=== PATIENT | female | born 1995 | race American Indian/Alaskan Native ===

== ENCOUNTER 2017-06-29 06:32 | Emergency (ER) | payer OTHER ==
[~2017-06-29] VITALS: Ht 175.3 cm; Wt 95.2 kg
[~2017-06-29 06:32] MED LIST: CALCIO DEL MAR500 MG PO; KEFLEX500 MG PO; MOTRIN800 MG PO; NAPROXEN500 MG PO; NORCO 10-325 T1 EACH PO; NORCO 5-325 TA1 EACH PO; PRENATAL-FOLIC1 EACH PO; ROBAXIN-750750 MG PO; ZOFRAN4 MG PO
== END 2017-06-29 08:06 | disposition home or self-care (01) ==
LOC: ED 06:32
PROC: 2W3FX1Z Immobilization of Left Hand using Splint (ICD-10-PCS; principal; 2017-06-29)
DX: S63.502A Unspecified sprain of left wrist, initial encounter (principal); F17.200 Nicotine dependence, unspecified, uncomplicated; S80.211A Abrasion, right knee, initial encounter; W01.0XXA Fall on same level from slipping, tripping and stumbling without subsequent striking against object, initial encounter
CPT/HCPCS: 29125; 73110; 99283

== ENCOUNTER 2017-10-13 17:55 | Emergency (ER) | payer OTHER ==
[~2017-10-13] VITALS: Ht 175.3 cm; Wt 95.2 kg
== END 2017-10-13 19:00 | disposition home or self-care (01) ==
LOC: ED 17:55
PROC: 0HC1XZZ Extirpation of Matter from Face Skin, External Approach (ICD-10-PCS; principal; 2017-10-13)
DX: S00.85XA Superficial foreign body of other part of head, initial encounter (principal); F17.200 Nicotine dependence, unspecified, uncomplicated; W26.9XXA Contact with unspecified sharp object(s), initial encounter
CPT/HCPCS: 10120; 99282

== ENCOUNTER 2017-11-24 04:17 | Emergency (ER) | payer OTHER ==
[~2017-11-24] VITALS: Ht 175.3 cm; Wt 95.2 kg
== END 2017-11-24 12:00 | disposition home or self-care (01) ==
LOC: ED 04:17
DX: F10.129 Alcohol abuse with intoxication, unspecified (principal); F17.200 Nicotine dependence, unspecified, uncomplicated; Y90.8 Blood alcohol level of 240 mg/100 ml or more
CPT/HCPCS: 80053; 81001; 84703; 85025; 87491; 87591; 96360; 96361; 99283; G0480; J7030

== ENCOUNTER 2018-03-17 21:54 | Emergency (ER) | payer OTHER ==
[~2018-03-17] VITALS: Ht 175.3 cm; Wt 104.3 kg
--- OUTSIDE RECORDS SUMMARY | ~2018-03-17 | XMS | Clinical Summary ---
Demographics + + + | Address | [address] | | | [place] [address] | + + + | Home Phone | | + + + | Preferred Language | Unknown | + + + | Marital Status | Single | + + + | Caodaism Affiliation | Unknown | + + + | Race | Unknown | + + + | Ethnic Group | Unknown | + + + Author + + + | Author | [facility] | | | and [place] | + + + | Organization | [facility] | | | and [place] | + + + | Address | Unknown | + + + | Phone | Unavailable | + + + Support + + +---------+ + | Name | Relationship | Address | Phone | + + +---------+ + | Tyra Silva | ECON | Unknown | | + + +---------+ + Care Team Providers + +------+ + | Care Cleaner Laboratory Equipment Name | Role | Phone | + +------+ + | Unknown, Doctor | PP | | + +------+ + Allergies No Known Allergies Current Medications + + +--------+---------+------+------+-------+ | Prescription | Sig. | Disp. | Refills | Star | End | Statu | | | | | | t | Date | s | | | | | | Date | | | + + +--------+---------+------+------+-------+ | ondansetron | Take 1 tablet by | 8 | 0 | 08/2 | 09/0 | Activ | | (ZOFRAN ODT) 4 mg | mouth every 8 hours | tablet | | 5/20 | 1/20 | e | | disintegrating | as needed for Nausea | | | 18 | 18 | | | tablet | for up to 7 days. | | | | | | + + +--------+---------+------+------+-------+ | morphine (MSIR) 15 | Take 1 tablet by | 7 | 0 | 08 | | Activ | | mg tablet | mouth every 8 hours | tablet | | 12/09 | | e | | | as needed for Pain. | | | 18 | | | + + +--------+---------+------+------+-------+ Active Problems Not on file Encounters +--------+ + + + + | Date | Type | Specialty | Care Team | Description | +--------+ + + + + | 03/16/ | Emergency | | Ochoa Castellon | Left ovarian cyst | | 2017 | | | MD Marisa | (Primary Dx) | +--------+ + + + + from Last 3 Months Social History + +-------+ +--------+------+ | Tobacco Use | Types | Packs/Day | Years | Date | | | | | Used | | + +-------+ +--------+------+ | Never Assessed | | | | | + +-------+ +--------+------+ + + + | Sex Assigned at | Date Recorded | | | | + + + | Not on file | | + + + Last Filed Vital Signs + + + + | Vital Sign | Reading | Time Taken | + + + + | Blood Pressure | 140/56 | 03/16/2018600 PDT | + + + + | Pulse | 82 | 03/16/2018600 PDT | + + + + | Temperature | 37.4 C (99.3 F) | 03/16/201814 PDT | + + + + | Respiratory Rate | 15 | 03/16/201814 PDT | + + + + | Oxygen Saturation | 97% | 03/16/2018600 PDT | + + + + | Inhaled Oxygen | - | - | | Concentration | | | + + + + | Weight | 106.6 kg (235 lb) | 03/16/201814 PDT | + + + + | Height | 175.3 cm (5' 9") | 03/16/201814 PDT | + + + + | Body Mass Index | 34.7 | 03/16/201814 PDT | + + + + Plan of Treatment + + + + + | Health Maintenance | Due Date | Last Done | Comments | + + + + + | Well Child Check | | | | | | 9 | | | + + + + + | Vaccine: HPV (1 of 3 | | | | | - Female 3-dose | 7 | | | | series) | | | | + + + + + | Vaccine: | | | | | Dtap/Tdap/Td (1 - | 5 | | | | Tdap) | | | | + + + + + | Cervical Cancer | | | | | Screening (Pap) | 7 | | | + + + + + | Vaccine: Influenza | | | | | (#1) | 8 | | | + + + + + Procedures + +--------+ + + + | Procedure Name | Priori | Date/Time | Associated Diagnosis | Comments | | | ty | | | | + +--------+ + + + | US PELVIS W | STAT | 03/16/2018 | | Results for this | | TRANSVAGINAL | | 0510 PDT | | procedure are in the | | | | | | results section. | + +--------+ + + + | CT ABDOMEN PELVIS W | STAT | 03/16/2018 | | Results for this | | CONTRAST | | 0306 PDT | | procedure are in the | | | | | | results section. | + +--------+ + + + | EXTRA HOLD TUBE(S) | Routin | 03/16/2018 | | Results for this | | | e | 0256 PDT | | procedure are in the | | | | | | results section. | + +--------+ + + + | POCT TEST, | STAT | 03/16/2018 | | Results for this | | URINE, QUAL | | 0245 PDT | | procedure are in the | | | | | | results section. | + +--------+ + + + | LIPASE | STAT | 03/16/2018 | | Results for this | | | | 0243 PDT | | procedure are in the | | | | | | results section. | + +--------+ + + + | COMPREHENSIVE | STAT | 03/16/2018 | | Results for this | | METABOLIC PANEL | | 0243 PDT | | procedure are in the | | | | | | results section. | + +--------+ + + + | CBC WITH | STAT | 03/16/2018 | | Results for this | | DIFFERENTIAL | | 0243 PDT | | procedure are in the | | | | | | results section. | + +--------+ + + + | EXTRA HOLD TUBE(S) | STAT | 03/16/2018 | | Results for this | | | | 0021 PDT | | procedure are in the | | | | | | results section. | + +--------+ + + + | URINALYSIS WITH | STAT | 03/16/2018 | | Results for this | | MICROSCOPIC | | 0021 PDT | | procedure are in the | | | | | | results section. | + +--------+ + + + from Last 3 Months Results US Pelvis W Transvaginal (03/16/2018 0510) + + + | Narrative | Performed At | + + + | ULTRASOUND PELVIS, TRANSABDOMINAL AND TRANSVAGINAL WITH DOPPLER | [facility] | | CLINICAL INFORMATION: Enlarged left ovary seen on CT scan. | | | COMPARISON: CT ABDOMEN PELVIS W CONTRAST dated 03/16/2018 | | | PROCEDURE: Transabdominal and transvaginal ultrasound evaluation of | | | the uterus, endometrium, adnexa and ovaries. Color and spectral | | | Doppler waveform evaluation of the ovaries. FINDINGS: | | | Transabdominal: Uterus: 7.3 x 4.3 x 3.3 cm. Uterus is normal in | | | position and contour. No visible adnexal mass or pathologic free | | | fluid. Transvaginal: Uterus normal. Well-positioned | | | intrauterine device. Endometrium: 5 mm. Right ovary: 3.7 x 2.8 | | | x 2.6 cm. Normal physiologic appearance. Left ovary: 7.5 x 6.0 x | | | 4.9 cm. 6.0 x 5.8 x 5.5 cm avascular complex cyst in the left ovary. | | | No abnormal appearing free fluid. Doppler: Normal low | | | resistance arterial and patent venous waveforms in the ovaries. | | | IMPRESSION: 1. 6.0 x 5.8 x 5.5 cm avascular complex cyst in the | | | left ovary. See recommendations below: Adnexal cyst with | | | indeterminate features. Recommend short term follow up ultrasound | | | in 6-12 weeks. In premenopausal women lesions suspected to be a | | | large (greater than 5cm) or atypical hemorrhagic cyst, endometrioma | | | or atypical dermoid. If not resolved at follow up, consider MRI to | | | confirm an endometrioma or dermoid and [employer]PRENTICE surgical evaluation | | | recommended. 2. Well-positioned IUD. Normal right ovary. | | | Signed by: MD Segundo, Nikolai Sign Date/Time: 03/16/2018 5:28 AM | | | | | + + + + + | Procedure Note | + + | Clay, Rad Results In - 03/16/2018 0531 PDT | | ULTRASOUND PELVIS, TRANSABDOMINAL AND TRANSVAGINAL WITH DOPPLER | | | | CLINICAL INFORMATION: | | Enlarged left ovary seen on CT scan. | | | | COMPARISON: | | CT ABDOMEN PELVIS W CONTRAST dated 03/16/2018 | | | | PROCEDURE: | | Transabdominal and transvaginal ultrasound evaluation of the uterus, | | endometrium, adnexa and ovaries. Color and spectral Doppler waveform | | evaluation of the ovaries. | | | | FINDINGS: | | Transabdominal: | | Uterus: 7.3 x 4.3 x 3.3 cm. Uterus is normal in position and contour. | | No visible adnexal mass or pathologic free fluid. | | | | Transvaginal: | | Uterus normal. Well-positioned intrauterine device. Endometrium: 5 | | mm. | | | | Right ovary: 3.7 x 2.8 x 2.6 cm. Normal physiologic appearance. | | | | Left ovary: 7.5 x 6.0 x 4.9 cm. 6.0 x 5.8 x 5.5 cm avascular complex | | cyst in the left ovary. | | | | No abnormal appearing free fluid. | | | | Doppler: Normal low resistance arterial and patent venous waveforms | | in the ovaries. | | | | IMPRESSION: | | 1. 6.0 x 5.8 x 5.5 cm avascular complex cyst in the left ovary. See | | recommendations below: | | | | Adnexal cyst with indeterminate features. Recommend short term | | follow up ultrasound in 6-12 weeks. | | | | In premenopausal women lesions suspected to be a large (greater than | | 5cm) or atypical hemorrhagic cyst, endometrioma or atypical dermoid. | | If not resolved at follow up, consider MRI to confirm an endometrioma | | or dermoid and [employer] APPRENTICE surgical evaluation recommended. | | | | 2. Well-positioned IUD. Normal right ovary. | | | | | | | | Signed by: MD Raymond Robin | | Sign Date/Time: 03/16/2018 5:28 AM | + + + +---------+ + + | Performing | Address | City/State/Zipcode | Phone Number | | Organization | | | | + +---------+ + + | [facility] | | | | + +---------+ + + CT Abdomen Pelvis w Contrast (03/16/2018 0306) + + + | Narrative | Performed At | + + + | CT ABDOMEN AND PELVIS WITH CONTRAST CLINICAL INFORMATION: | [facility] | | Abdominal pain and nausea for five days. COMPARISON: No | | | comparisons PROCEDURE: Axial images through the abdomen and | | | pelvis after the administration of 100 ml Omnipaque 350 intravenous | | | contrast. Multiplanar reconstructions. At least one of the | | | following CT dose optimization techniques were used: Automated | | | exposure control; Adjustment of mA and/or kV according to patient | | | size; Use of iterative reconstruction technique. FINDINGS: LUNG | | | BASES: No significant pulmonary abnormality. No pleural effusion or | | | pneumothorax. ABDOMEN Liver and Biliary: No gallbladder or | | | biliary abnormality. No significant liver abnormality. Pancreas, | | | Spleen and Adrenals: No pancreatitis or pancreatic mass. No | | | splenomegaly, splenic mass or splenic hemorrhage. No significant | | | adrenal abnormality. Kidneys: No renal calculi or solid renal | | | mass. Mild left-sided hydronephrosis. ABDOMEN AND PELVIS | | | Bowel: No small bowel or colonic dilation or adjacent inflammation. | | | No appendiceal dilation or inflammation. Vessels: No significant | | | abnormality in the aorta or its proximal branches. No significant | | | abnormality in the portal veins, mesenteric veins or systemic veins. | | | Lymph Nodes: There are several mildly prominent retroperitoneal lymph | | | nodes measuring up to 1.4 cm. Peritoneum and Retroperitoneum: No | | | ascites or free air. No significant retroperitoneal abnormality. | | | PELVIS Genitourinary: There is an IUD in place within the endometrial | | | canal. The left ovary is enlarged and deviates the retroverted | | | uterus rightward. Mildly complex cystic lesion in the left ovary | | | which measures 5.7 cm. There is an additional small irregular | | | heterogeneous low attenuation cystic lesion in the right ovary which | | | appears to contain internal septations. This may represent a | | | hemorrhagic cyst. Trace free fluid in the cul-de-sac. BODY WALL | | | Soft Tissues: No bowel or inflamed fat containing hernia, mass or | | | hemorrhage. Bones: No acute fracture or vertebral end plate | | | destruction. No lytic or blastic lesion. IMPRESSION: 1. Complex | | | cystic lesions in the enlarged left ovary, the largest measuring 5.7 | | | cm. Pelvic ultrasound recommended. Premenopausal patient with a | | | probably benign cyst measuring > 5 cm. (Based on White paper of the | | | ACR Incidental Findings Committee II on Adnexal Findings. J Am Rhonda | | | Radiol 2013; 10: 675-681) 2. Trace amount of free fluid in the | | | cul-de-sac. 3. Mild left-sided hydronephrosis, without an obstructing | | | ureteral calculus. This may be secondary to the enlarged left | | | ovary. 4. Nonspecific mildly prominent retroperitoneal lymph nodes. | | | Signed by: MD Fady, Janeth Sign Date/Time: 03/16/2018 | | | 3:21 AM | | + + + + + | Procedure Note | + + | Clay, Rad Results In - 03/16/2018 0325 PDT | | CT ABDOMEN AND PELVIS WITH CONTRAST | | | | CLINICAL INFORMATION: | | Abdominal pain and nausea for five days. | | | | COMPARISON: | | No comparisons | | | | PROCEDURE: | | Axial images through the abdomen and pelvis after the administration | | of 100 ml Omnipaque 350 intravenous contrast. Multiplanar | | reconstructions. | | | | At least one of the following CT dose optimization techniques were | | used: Automated exposure control; Adjustment of mA and/or kV | | according to patient size; Use of iterative reconstruction technique. | | | | FINDINGS: | | LUNG BASES: No significant pulmonary abnormality. No pleural effusion | | or pneumothorax. | | | | ABDOMEN | | Liver and Biliary: No gallbladder or biliary abnormality. No | | significant liver abnormality. | | Pancreas, Spleen and Adrenals: No pancreatitis or pancreatic mass. No | | splenomegaly, splenic mass or splenic hemorrhage. No significant | | adrenal abnormality. | | Kidneys: No renal calculi or solid renal mass. Mild left-sided | | hydronephrosis. | | | | ABDOMEN AND PELVIS | | Bowel: No small bowel or colonic dilation or adjacent inflammation. | | No appendiceal dilation or inflammation. | | Vessels: No significant abnormality in the aorta or its proximal | | branches. No significant abnormality in the portal veins, mesenteric | | veins or systemic veins. | | Lymph Nodes: There are several mildly prominent retroperitoneal lymph | | nodes measuring up to 1.4 cm. | | Peritoneum and Retroperitoneum: No ascites or free air. No | | significant retroperitoneal abnormality. | | | | PELVIS | | Genitourinary: There is an IUD in place within the endometrial canal. | | The left ovary is enlarged and deviates the retroverted uterus | | rightward. Mildly complex cystic lesion in the left ovary which | | measures 5.7 cm. There is an additional small irregular | | heterogeneous low attenuation cystic lesion in the right ovary which | | appears to contain internal septations. This may represent a | | hemorrhagic cyst. Trace free fluid in the cul-de-sac. | | | | BODY WALL | | Soft Tissues: No bowel or inflamed fat containing hernia, mass or | | hemorrhage. | | Bones: No acute fracture or vertebral end plate destruction. No lytic | | or blastic lesion. | | | | IMPRESSION: | | 1. Complex cystic lesions in the enlarged left ovary, the largest | | measuring 5.7 cm. Pelvic ultrasound recommended. Premenopausal | | patient with a probably benign cyst measuring > 5 cm. (Based on White | | paper of the ACR Incidental Findings Committee II on Adnexal | | Findings. J Am Rhonda Radiol 2013; 10: 675-681) | | 2. Trace amount of free fluid in the cul-de-sac. | | 3. Mild left-sided hydronephrosis, without an obstructing ureteral | | calculus. This may be secondary to the enlarged left ovary. | | 4. Nonspecific mildly prominent retroperitoneal lymph nodes. | | | | | | | | Signed by: MD Shrestha Paula | | Sign Date/Time: 03/16/2018 3:21 AM | + + + +---------+ + + | Performing | Address | City/State/Zipcode | Phone Number | | Organization | | | | + +---------+ + + | [facility] | | | | + +---------+ + + Extra Hold Tube(s) (03/16/2018 0256)Only the most recent of 2 results within the time kannan javed is included. + + + + ---+ | Component | Value | Ref Range | Performed At | + + + + ---+ | Extra Tube | DrawnComment: Performed | | [facility] | | | by [facility] [address], | | [facility] | | | [place] [address] | | MEDICAL CENT[facility] R | | |Performed by [facility] [address], [place] [address] | | LABORATORY | | | | | [facility] | + + + + ---+ + + | Specimen | + + | Blood | + + + + + | Narrative | Performed At | + + + | blue, sst | [facility] | | | [facility] | | [facility] | | | LAB[facility]ATORY | | | [facility] | + + + + + + + + | Performing | Address | City/State/Zipcode | Phone Number | | Organization | | | | + + + + + | [facility] | [address] | [place] [address] | | | [facility] | | | | | [facility]AT[facility] | | | | + + + + + POCT Test, Urine, QUAL (03/16/2018 0245) + + + + + | Component | Value | Ref Range | Performed At | + + + + + | Test, | Negative | Negative | | | Urine, POC | | | | + + + + + | Internal QC | Acceptable | Acceptable | | + + + + + | Specific [place], | | 1.010, 1.015, 1.020, | | | POC | | 1.025 | | + + + + + | Lot Number | | | | + + + + + | Expiration Date | | | | + + + + + + + | Specimen | + + | Urine | + + CBC with Differential (03/16/2018 0243) + + + --+ + | Component | Value | Ref Range | Performed At | + + + --+ + | WBC | 13.6 (H) | 3.8 - 11.0 K/uL | [facility] | | | | | [facility] | | | | | [facility] | | | | | LAB[facility]ATORY | | | | | [facility] | + + + --+ + | RBC | 3.95 | 3.70 - 5.10 M/u L | [facility] | | | | | [facility] | | | | | [facility] | | | | | LAB[facility]ORY | | | | | [facility] | + + + --+ + | Hgb | 12.3 | 11.3 - 15.5 g/d L | [facility] | | | | | [facility] | | | | | [facility] | | | | | LAB[facility]ATORY | | | | | [facility] | + + + --+ + | Hct | 35.9 | 34.0 - 46.0 % | [facility] | | | | | [facility] | | | | | [facility] | | | | | LAB[facility]ORY | | | | | [facility] | + + + --+ + | MCV | 90.9 | 80.0 - 100.0 fL | [facility] | | | | | [facility] | | | | | [facility] | | | | | LAB[facility]ATORY | | | | | [facility] | + + + --+ + | MCH | 31.2 | 27.0 - 34.0 pg | [facility] | | | | | [facility] | | | | | [facility] | | | | | LAB[facility]ATORY | | | | | [facility] | + + + --+ + | MCHC | 34.3 | 32.0 - 35.5 g/d L | [facility] | | | | | [facility] | | | | | [facility] | | | | | LAB[facility]ATORY | | | | | [facility] | + + + --+ + | RDW-CV | 13.3 | 11.0 - 15.5 % | [facility] | | | | | [facility] | | | [facility] | | | | | LAB[facility]ATORY | | | | | [facility] | + + + --+ + | Platelet Count | 188 | 150 - 400 K/uL | [facility] | | | | | [facility] | | | | [facility] | | | | | LAB[facility]ORY | | | | | [facility] | + + + --+ + | MPV | 8.2 | 7.5 - 11.2 fL | [facility] | | | | | [facility] | | | | [facility] | | | | | [facility] | | | | | [facility] | + + + --+ + | % Neutrophils | 79.1 (H) | 40.0 - 75.0 % | [facility] | | | | | [facility] | | | | | [facility] | | | | | LAB[facility]ATORY | | | | | [facility] | + + + --+ + | % Lymphocytes | 10.2 (L) | 15.0 - 48.0 % | [facility] | | | | | [facility] | | | | | [facility] | | | | | LAB[facility]ORY | | | | | [facility] | + + + --+ + | % Monocytes | 9.3 | 0.0 - 12.0 % | [facility] | | | | | [facility] | | | | | [facility] | | | | | LAB[facility] | | | | | [facility] | + + + --+ + | % Eosinophils | 1.2 | 0.0 - 7.0 % | [facility] | | | | | [facility] | | | | [facility] | | | | | LAB[facility] | | | | | [facility] | + + + --+ + | % Basophils | 0.2 | 0.0 - 2.0 % | [facility] | | | | | [facility] | | | | [facility] | | | | | LAB[facility]ORY | | | | | [facility] | + + + --+ + | Absolute Neutrophils | 10.70 (H) | 1.90 - 7.40 K/u L | [facility] | | | | | [facility] | | | | [facility] | | | | | [facility] | | | | | [facility] | + + + --+ + | Absolute Lymphocytes | 1.39 | 1.00 - 3.90 K/u L | [facility] | | | | | [facility] | | | | | [facility] | | | | | [facility] | | | | | [facility] | + + + --+ + | Absolute Monocytes | 1.26 (H) | 0.00 - 0.80 K/u L | [facility] | | | | | [facility] | | | | | [facility] | | | | | LAB[facility] | | | | | [facility] | + + + --+ + | Absolute Eosinophils | 0.16 | 0.00 - 0.50 K/u L | [facility] | | | | | [facility] | | | | | [facility] | | | | | LAB[facility]ORY | | | | | [facility] | + + + --+ + | Absolute Basophils | 0.03Comment: Performed | 0.00 - 0.10 K/u L | [facility] | | | by [facility] [address], | | [facility] | | | [place] [address] | | MEDICAL CENTER | | |Performed by [facility] [address], [place] [address] | | LABORATORY | | | | | [facility] | + + + --+ + + + | Specimen | + + | Blood | + + + + + + + | Performing | Address | City/State/Zipcode | Phone Number | | Organization | | | | + + + + + | [facility] | [address] | [place] [address] | | | [facility] | | | | | [facility] | | | | + + + + + Lipase (03/16/2018 0243) + + + + ----+ | Component | Value | Ref Range | Performed At | + + + + ----+ | LIPASE | 55Comment: Performed by | 11 - 82 U/L | [facility] | | | [facility] [address], | | [facility] | | | [place] [address] | | MEDICAL CENT ER | | |Performed by [facility] [address], [place] [address] | | LABORATORY | | | | | [facility] | + + + + ----+ + + | Specimen | + + | Blood | + + + + + + + | Performing | Address | City/State/Zipcode | Phone Number | | Organization | | | | + + + + + | [facility] | [address] | [place] [address] | | | [facility] | | | | | [facility] | | | | + + + + + Comprehensive Metabolic Panel (03/16/2018 0243) + + + + + | Component | Value | Ref Range | Performed At | + + + + + | NA | 139 | 135 - 145 mmol/L | [facility] | | | | | [facility] | | | [facility] | | | | | LAB[facility]ATORY | | | | | [facility] | + + + + + | K | 3.9 | 3.5 - 5.0 mmol/L | [facility] | | | | | [facility] | | | | [facility] | | | | | [facility] | | | | | [facility] | + + + + + | CL | 104 | 99 - 109 mmol/L | [facility] | | | | | [facility] | | | | | [facility] | | | | | LAB[facility]ATORY | | | | | [facility] | + + + + + | CO2 | 27 | 21 - 28 mmol/L | [facility] | | | | | [facility] | | | | | [facility] | | | | | LAB[facility] | | | | | [facility] | + + + + + | CALCIUM | 8.0 (L) | 8.5 - 10.2 mg/dL | [facility] | | | | | [facility] | | | | | [facility] | | | | | LAB[facility] | | | | | [facility] | + + + + + | ANION GAP | 8 | 5 - 16 mmol/L | [facility] | | | | | [facility] | | | | | [facility] | | | | | [facility] | | | | | [facility] | + + + + + | ALBUMIN | 4.4 | 3.5 - 5.0 g/dL | [facility] | | | | | [facility] | | | | | [facility] | | | | | [facility] | | | | | [facility] | + + + + + | BUN | 11 | 8 - 25 mg/dL | [facility] | | | | | [facility] | | | | | [facility] | | | | | [facility] | | | | | [facility] | + + + + + | Creatinine, | 0.85 | 0.50 - 1.00 mg/dL | [facility] | | Serum/Plasma | | | [facility] | | | | | [facility] | | | | | LAB[facility] | | | | | [facility] | + + + + + | GLUCOSE | 102 (H) | 65 - 99 mg/dL | [facility] | | | | | [facility] | | | | | [facility] | | | | | [facility] | | | | | [facility] | + + + + + | Total protein | 7.4 | 6.1 - 8.4 g/dL | [facility] | | | | | [facility] | | | | | [facility] | | | | | LAB[facility] | | | | | [facility] | + + + + + | ALK PHOS | 99 | 35 - 115 U/L | [facility] | | | | | [facility] | | | | | [facility] | | | | | LAB[facility]ATORY | | | | | [facility] | + + + + + | ALT | 81 (H) | 10 - 65 U/L | [facility] | | | | | [facility] | | | | | [facility] | | | | | LAB[facility]ATORY | | | | | [facility] | + + + + + | AST | 60 (H) | 10 - 45 U/L | [facility] | | | | | [facility] | | | | | [facility] | | | | | [facility] | | | | | [facility] | + + + + + | Bilirubin Total | 0.5 | 0.1 - 1.5 mg/dL | [facility] | | | | | [facility] | | | | | [facility] | | | | | LAB[facility]ORY | | | | | [facility] | + + + + + | Estimated GFR | 98Comment: eGFR<60 | >=90 mL/min/1.73m2 | [facility] | | | consistent with impaired | | [facility] | | | kidney | | [facility]ENTER | | | function.Performed by | | LABORATORY | | | [facility] [address], | | [facility] | | | [place] [address] | | | + + + + + + + | Specimen | + + | Blood | + + + + + + + | Performing | Address | City/State/Zipcode | Phone Number | | Organization | | | | + + + + + | [facility] | [address] | [place] [address] | | | [facility] | | | | | [facility] | | | | + + + + + Urinalysis With Microscopic (03/16/2018 0021) + + + + + | Component | Value | Ref Range | Performed At | + + + + + | COLOR | Yellow | | [facility] | | | | | [facility] | | | | [facility] | | | | | LAB[facility]ORY | | | | | [facility] | + + + + + | CLARITY | Clear | | [facility] | | | | | [facility] | | | | [facility] | | | | | LAB[facility]ORY | | | | | [facility] | + + + + + | GLUCOSE UA | Negative | Negative | [facility] | | | | | [facility] | | | | [facility] | | | | | [facility] | | | | | [facility] | + + + + + | BILIRUBIN UA | Negative | Negative | [facility] | | | | | [facility] | | | | | [facility] | | | | | [facility] | | | | | [facility] | + + + + + | UROBILINOGEN UA | 4.0 (A) | <2.0 mg/dL | [facility] | | | | | [facility] | | | | | [facility] | | | | | LAB[facility]ORY | | | | | [facility] | + + + + + | KETONES UA | Negative | Negative | [facility] | | | | | [facility] | | | | [facility] | | | | | LAB[facility]ORY | | | | | [facility] | + + + + + | Specific [place] | 1.010 | 1.001 - 1.030 | [facility] | [facility] | | | | | LABORATORY | | | | | CERNER | + + + + + | PH UA | 7.0 | 5.0 - 7.5 | [facility] | | | | | LABORATORY | | | | | CERNER | + + + + + | PROTEIN UA | Negative | Negative | [facility] | | | | | LABORATORY | | | | | CERNER | + + + + + | NITRITE UA | Negative | Negative | [facility] | | | | | LABORATORY | | | | | CERNER | + + + + + | BLOOD UA | Small (A) | Negative | [facility] | | | | | LABORATORY | | | | | CERNER | + + + + + | LEUKOCYTES ESTERASE | Negative | Negative | [facility] | | [facility] | | [facility] | | | | | LABORATORY | | | | | CERNER | + + + + + | SQUAMOUS EPITHELIAL | Many | | [facility] | | UA | | [facility] | | [facility] | | | | | LABORATORY | | | | | CERNER | + + + + + | WBC UA | 3 | 0 - 5 /hpf | [facility] | | | | | LABORATORY | | | | | CERNER | + + + + + | RBC UA | <1 | 0 - 5 | [facility] | | | | | LABORATORY | | | | | CERNER | + + + + + | BACTERIA UA | None Seen | | [facility] | [facility] | | | | | LABORATORY | | | | | CERNER | + + + + + | AMORPHOUS CRYSTALS | None Present | | [facility] | [facility] | | | | | LABORATORY | | | | | CERNER | + + + + + | MUCUS UA | Not PresentComment: | | [facility] | | | Performed by [facility] [address] | | [facility] | | | [address] [place] | | MEDICAL CENTER | | | [address] | | LABORATORY | | | | | CERNER | + + + + + + + | Specimen | + + | Urine | + + + + + + + | Performing | Address | City/State/Zipcode | Phone Number | | Organization | | | | + + + + + | [facility] | [address] | [place] [address] | | | [facility] | | | | | LABORATORY PARISH | | | | + + + + + from Last 3 Months Insurance + +--------+ +--------+ +---------+ | Payer | Benefi | Subscriber | Type | Phone | Address | | | t Plan | ID | | | | | | / | | | | | | | Group | | | | | + +--------+ +--------+ +---------+ | [place]ICA[place] | MEDICA | [id number] | Medica | [phone] | | | [place] | | id | [phone] | | | | PLUS | | | | | + +--------+ +--------+ +---------+ + +--------+ +--------+ + + | Guarantor Name | Accoun | Relation to | Date | Phone | Billing Address | | | t Type | Patient | of | | | | | | | | | | + +--------+ +--------+ + + | VERONICA JAIMES | Person | Self [birth year] | Home: | [address] | | | al/Fam | | 1994 | [phone] | [place] | | | jaimie | | | [phone] | + +--------+ +--------+ + +
--- OUTSIDE RECORDS SUMMARY | ~2018-03-17 | XMS | Encounter Summary ---
Demographics + + + | Address | [address] | | | [place] [address] | + + + | Home Phone | | + + + | Preferred Language | Unknown | + + + | Marital Status | Single | + + + | Holiness Affiliation | Unknown | + + + | Race | Unknown | + + + | Ethnic Group | Unknown | + + + Author + + + | Author | [facility] | | | and [place] | + + + | Organization | [facility] | | | and [place] [...] Team Providers + +------+ + | Care German Teacher Name | Role | Phone | + +------+ + | Unknown, Doctor | PCP | | + +------+ + Reason for Visit + + + | Reason | Comments | + + + | Abdominal Pain | | + + + Encounter Details +--------+ + + + + | Date | Type | Department | Care Team | Description | +--------+ + + + + | 03/16/ | Emergency | [facility] | Ochoa Castellon | Left ovarian cyst | | 2018 | | [facility] | MD Marisa [address] | (Primary Dx) | | | | EMERGENCY CENTER | [place] [address] | | | | | [address] | [phone] | | | | | [place], [place] | | | | | | [address] | | | | | | [phone] | | | +--------+ + + + + Social History + +-------+ +--------+------+ | Tobacco [...] on file | | + + + as of this encounter Last Filed Vital Signs + + + [...] + | Oxygen Saturation | 97% | 03/16/2018 06 PDT | + + + + | [...] 03/16/201814 PDT | + + + + in this encounter Discharge Instructions Ochoa Castellon MD - 03/16/2018Follow up with your doctor in 2-3 days, and return to [facility] emergency department for fever, vomiting, or any new symptoms or concerns. You will need a repeat ultrasound of your ovary in 6-12 weeks to look for resolution of your cyst. in this encounter Medications at Time of Discharge + + +--------+---------+ + + | Medication | Sig. | Disp. | Refills | Start | End Date | | | | | | Date | | + + +--------+---------+ + + | morphine (MSIR) 15 | Take 1 tablet by | 7 | 0 | 03/16/20 | | | mg tablet | mouth every 8 hours | tablet | | 18 | | | | as needed for Pain. | | | | | + + +--------+---------+ + + | ondansetron | Take 1 tablet by | 8 | 0 | 03/16/20 | | | (ZOFRAN ODT) 4 mg | mouth every 8 hours | tablet | | 18 | 8 | | disintegrating | as needed for Nausea | | | | | | tablet | for up to 7 days. | | | | | + + +--------+---------+ + + as of this encounter Plan of Treatment Not on fileas of this encounter Procedures + +--------+ + + + | [...] section. | + +--------+ + + + in this encounter Results US Pelvis W Transvaginal (03/16/2018 0510) [...] | confirm an endometrioma or dermoid and TAFE TEACHER surgical evaluation | | | recommended. 2. [...] an endometrioma | | or dermoid and TAFE TEACHER surgical evaluation recommended. | | | | 2. Well-positioned IUD. Normal right ovary. | | | | | | | | Signed by: MD Raymond Robin | | Sign Date/Time: 03/16/2018 5:28 AM | + + + +---------+ + + | Performing | Address | City/State/[facility] | Phone Number | | Organization | [...] nodes. | | | Signed by: MD Shrestha Paula Sign Date/Time: 03/16/2018 | | | 3:21 AM | | + + + + + | Procedure Note | + + | Clay, Rad Results In 03/16/2018 0325 PDT | | CT ABDOMEN [...] +---------+ + + Extra Hold Tube(s) (03/16/2018 0256) + + + + ---+ | Component | Value | Ref Range | Performed At | + + + + ---+ | Extra Tube | DrawnComment: Performed | | [facility] | | | by [facility] [address], | | [facility] | | | [place] [address] | | MEDICAL CENTE R | | |Performed by [facility] [address], [place] [address] | | LABORATORY | | | | | CERNER | + + + + ---+ + + | Specimen | + + | Blood | + + + + + | Narrative | Performed At | + + + | adalid aguilar | [facility] | | | [facility] | | | [facility]ICAL CENTER | | | LABORATORY | | | PARISH | + + + + + + + + | Performing | Address | City/State/Zipcode | Phone Number | | Organization | | | | + + + + + | [facility] | [address] | [place] [address] | | | [facility] | | | | | LABORATORY PARISH [...] + + + + + | Specific [place], | | 1.010, 1.015, 1.020, | | | POC | | 1.025 | | + + + + + | Lot Number | | | | + + + + + | Expiration Date | | | | + + + + + + + | Specimen | + + | Urine | + + Lipase (03/16/2018 0243) + + + + ----+ | Component | Value | Ref Range | Performed At | + + + + ----+ | LIPASE | 55Comment: Performed by | 11 - 82 U/L | [facility] | | | [facility] [address], | | [facility] | | | [place], [place] | | MEDICAL CENT ER | | |Performed by [facility] [address], [place] | | LABORATORY | | | | | [place] | + + + + ----+ + + | Specimen | + + | Blood | + + + + + + + | Performing | Address | City/State/Zipcode | Phone Number | | Organization | | | | + + + + + | [facility] | [address] | [place] [address] | | | [facility] | | | | | [place] | | | | + + + + + Comprehensive Metabolic Panel (03/16/2018 0243) + + + + + | Component | Value | Ref Range | Performed At | + + + + + | NA | 139 | 135 - 145 mmol/L | [facility] | | | | | [facility] | | | | [facility]ENTER | | | | | LABORATORY | | | | | CERNER | + + + + + | K | 3.9 | 3.5 - 5.0 mmol/L | [facility] | | | | [...] [facility] | | | | | [facility] | | | | | LABORATORY | | | | | PARISH | + + + + + | Estimated GFR | 98Comment: eGFR<60 | >=90 mL/min/1.73m2 | [facility] | | | consistent with impaired | | [facility] | | | kidney | | MEDICAL CENTER | | | function.Performed by | | LABORATORY | | | [facility] [address], | | CERNER | | | [place] [address] | | | + + + + + + + | Specimen | + + | Blood | + + + + + + + | Performing | Address | City/State/Zipcode | Phone Number | | Organization | | | | + + + + + | [facility] | [address] | [place] [address] | | | [facility] | | | | | LABORATORY PARISH | | | | + + + + + CBC with Differential (03/16/2018 0243) + + + --+ + | Component | Value | Ref Range | Performed At | + + + --+ + | WBC | 13.6 (H) | 3.8 - 11.0 K/uL | [facility] | | | | | [facility] | | | | | MEDICAL CENTER | | | | | LABORATORY | | | | | PARISH | + + + --+ + | [...] | 0.00 - 0.10 K/u L | [facility] | | | by [facility] [address], | | [facility] | | | [place], [place] | | [facility] | | |Performed by [facility] [address], [place] | | LABORATORY | | | | | CERNER | + + + --+ + + + | Specimen | + + | Blood | + + + + + + + | Performing | Address | City/State/Zipcode | Phone Number | | Organization | | | | + + + + + | [facility] | [address] | [place], [place] | | | [facility] | | | | | LABORATORY CERNER | | | | + + + + + Extra Hold Tube(s) (03/16/2018 0021) + + + + ---+ | Component | Value | Ref Range | Performed At | + + + + ---+ | Extra Tube | DrawnComment: Performed | | [facility] | | | by [facility] [address], | | [facility] | | | [place] [address] | | MEDICAL CENTE R | | |Performed by [facility] [address], [place] [address] | | LABORATORY | | | | | CERNER | + + + + ---+ + + | Specimen | + + | Urine | + + + + + | Narrative | Performed At | + + + | yellow malin | [facility] | | | [facility] | | | MEDICAL CENTER | | | LABORATORY | | | [place] | + + + + + + + + | Performing | Address | City/State/Zipcode | Phone Number | | Organization | | | | + + + + + | [facility] | [address] | [place] [address] | | | [facility] | [...] + + + + + | Specific [place] | 1.010 | 1.001 - 1.030 | [...] | [facility] | | | Performed by [facility] [address] | | [facility] | | | [address] [place] | | MEDICAL CENTER | | | [address] | | LABORATORY | | | | | CERNER | + + + + + + + | Specimen | + + | Urine | + + + + + + + | Performing | Address | City/State/Zipcode | Phone Number | | Organization | | | | + + + + + | [facility] | [address] | [place] [address] | | | [facility] | | | | | LABORATORY CERNER | | | | + + + + + in this encounter Visit Diagnoses + + | Diagnosis | + + | Left ovarian cyst - Primary | + + | Other and unspecified ovarian cyst | + + Administered Medications + +--------+ +------+------+------+ | Medication Order | MAR | Action | Dose | Rate | Site | | | Action | Date | | | | + +--------+ +------+------+------+ | HYDROmorphone (DILAUDID) | Given | | 1 mg | | | | injection 1 mg 1 mg, | | 8 2:54 | | | | | Intravenous, EVERY 1 HOUR PRN, | | PDT | | | | | Pain, Starting 03/16/18 at | | | | | | | 0226, For 3 doses | | | | | | + +--------+ +------+------+------+ +---+---+ | | | +---+---+ + +-------+ +---------+---+---+ | iohexol (OMNIPAQUE 350) 350 | Given | | 100 mLs | | | | mg/mL injection 100 mL 100 mL, | | 8 3:08 | | | | | Intravenous, ONCE PRN, Other, | | PDT | | | | | Starting 03/16/18 at 0307, For | | | | | | | 1 dose, Cat Scanner | | | | | | + +-------+ +---------+---+---+ +---+---+ | | | +---+---+ + +-------+ +------+---+---+ | ondansetron (ZOFRAN) injection | Given | | 4 mg | | | | 4 mg 4 mg, Intravenous, ONCE, | | 8 2:54 | | | | | 03/16/18 at 0255, For 1 dose | | PDT | | | | + +-------+ +------+---+---+ +---+---+ | | | +---+---+ + +---------+ +--------+-------+---+ | sodium chloride 0.9% (NS) bolus | New Bag | | 1,000 | 1000 | | | 1,000 mL 1,000 mL, Intravenous, | | 8 3:21 | mLs | mL/hr | | | Administer over 1 Hours, ONCE, | | PDT | | | | | 03/16/18 at 0230, For 1 dose | | | | | | + +---------+ +--------+-------+---+ +---+---+ | | | +---+---+ + +------+ +--------+-------+---+ | sodium chloride 0.9% (NS) bolus | Push | | 60 mLs | 3600 | | | 60 mL 60 mL, Intravenous, | | 8 3:08 | | mL/hr | | | Administer over 1 Minutes, ONCE | | PDT | | | | | PRN, for contrast study, Starting | | | | | | | 03/16/18 at 0307, For 1 dose, | | | | | | | May infuse at a different rate | | | | | | | per protocol. | | | | | | + +------+ +--------+-------+---+ +---+---+ | | | +---+---+ in this encounter
--- OUTSIDE RECORDS SUMMARY | ~2018-03-17 | XMS | Encounter Summary ---
Demographics + + + | Address | [address] | | | [place] [address] | + + + | Home Phone | | + + + | Preferred Language | Unknown | + + + | Marital Status | Single | + + + | Bahai Affiliation | Unknown | + + + | Race | Unknown | + + + | Ethnic Group | Unknown | + + + Author + + + | Author | [facility] | | | and [place] | + + + | Organization | [facility] | | | and [place] | [...] Team Providers + +------+ + | Care Orthotist Name | Role | Phone | + [...] | | | | EMERGENCY CENTER | [place] [address] | | | | | [address] | [phone] | | | | | [place], [place] | | | | | | [address] | | | | | | [phone] | | | +--------+ + + + [...] doctor in 2-3 days, and return to [facility] emergency department for fever, vomiting, or any [...] | confirm an endometrioma or dermoid and HAMMER SHOP SUPERVISOR surgical evaluation | | | recommended. 2. [...] an endometrioma | | or dermoid and HAMMER SHOP SUPERVISOR surgical evaluation recommended. | | | | 2. Well-positioned IUD. Normal right ovary. | | | | | | | | Signed by: MD Raymond Robin | | Sign Date/Time: 03/16/2018 5:28 AM | + + + +---------+ + + | Performing | Address | City/State[facility] | Phone Number | | Organization [...] | | [facility] | | | by [facility] [address], | | [facility] | | | [place] [address] | | MEDICAL CENTE R | | |Performed by [facility] [address], [place] [address] | | LABORATORY | | | | [...] + + | [facility] | [address] [place] | [place] [address] | | | [facility] | [...] + + + + + | Specific [place], | | 1.010, 1.015, 1.020, | | [...] 82 U/L | [facility] | | | [facility] [address], | | [facility] | | | [place], [place] | | MEDICAL CENT ER | | |Performed by [facility] [address], [place] | | LABORATORY | | | | | [place] | + + + + ----+ + + | Specimen | + + | Blood | + + + + + + + | Performing | Address | City/State/Zipcode | Phone Number | | Organization | | | | + + + + + | [facility] | [address] | [place] [address] | | | [facility] | | | | | [place] [...] [facility] | | | | | [facility] | | | | | LABORATORY | | | | | PARISH | + + + + + | Estimated GFR | 98Comment: eGFR<60 | >=90 mL/min/1.73m2 | [facility] | | | consistent with impaired | | [facility] | | | kidney | | MEDICAL CENTER | | | function.Performed by | | LABORATORY | | | [facility] [address], | | CERNER | | | [place] [address] | | | + + + + + + + | Specimen | + + | Blood | + + + + + + + | Performing | Address | City/State/Zipcode | Phone Number | | Organization | | | | + + + + + | [facility] | [address] | [place] [address] | | | HE[facility] | | | | | LABORATORY [...] L | [facility] | | | by [facility] [address], | | [facility] | | | [place], [place] | | [facility] | | |Performed by [facility] [address], [place], [place] | | LABORATORY | | | | | CERNER | + + + --+ + + + | Specimen | + + | Blood | + + + + + + + | Performing | Address | City/State/Zipcode | Phone Number | | Organization | | | | + + + + + | [facility] | [address] | [place], [place] | | | [facility] | | | | | LABORATORY CERNER | | | | + + + + + Extra Hold Tube(s) (03/16/2018 0021) + + + + ---+ | Component | Value | Ref Range | Performed At | + + + + ---+ | Extra Tube | DrawnComment: Performed | | [facility] | | | by [facility] [address], | | [facility] | | | [place] [address] | | MEDICAL CENTE R | | |Performed by [facility] [address], [place] [address] | | LABORATORY | | | | [...] + + | [facility] | [address] | [place] [address] | | | [facility] | [...] + + + + + | Specific [place] | 1.010 | 1.001 - 1.030 | [...] | [facility] | | | Performed by [facility] [address] | | [facility] | | | [address] [place] | | MEDICAL CENTER | | | [address] | | LABORATORY | | | | | CERNER | + + + + + + + | Specimen | + + | Urine | + + + + + + + | Performing | Address | City/State/Zipcode | Phone Number | | Organization | | | | + + + + + | [facility] | [address] | [place] [address] | | | [facility] | | | | | [...]
--- OUTSIDE RECORDS SUMMARY | ~2018-03-17 | XMS | Clinical Summary ---
Demographics + + + | Address | [address] | | | [place] [address] | + + + | Home Phone | | + + + | Preferred Language | Unknown | + + + | Marital Status | Single | + + + | Spiritism Affiliation | Unknown | + + + | Race | Unknown | + + + | Ethnic Group | Unknown | + + + Author + + + | Author | [facility] | | | and [place] | + + + | Organization | [facility] | | | and [place] [...] Team Providers + +------+ + | Care Associate Curator Name | Role | Phone | + [...] | confirm an endometrioma or dermoid and RAILCAR SWITCHER surgical evaluation | | | recommended. 2. [...] an endometrioma | | or dermoid and RAILCAR SWITCHER surgical evaluation recommended. | | | | [...] | | [facility] | | | by [facility] [address], | | [facility] | | | [place] [address] | | MEDICAL CENTE R | | |Performed by [facility] [address], [place] [address] | | LABORATORY | | | | [...] + + | [facility] | [address] | [place] [address] | | | [facility] | | | | | LABORATORY CERNER [...] + + + + + | Specific [place], | | 1.010, 1.015, 1.020, | | [...] L | [facility] | | | by [facility] [address], | | [facility] | | | [place] [address] | | MEDICAL CENTER | | |Performed by [facility] [address], [place] [address] | | LABORATORY | | | | | CERNER | + + + --+ + + + | Specimen | + + | Blood | + + + + + + + | Performing | Address | City/State/Zipcode | Phone Number | | Organization | | | | + + + + + | [facility] | [address] | [place] [address] | | | [facility] | | | | | [place] | | | | + + + + + Lipase (03/16/2018 0243) + + + + ----+ | Component | Value | Ref Range | Performed At | + + + + ----+ | LIPASE | 55Comment: Performed by | 11 - 82 U/L | [facility] | | | [facility] [address], | | [facility] | | | [place] [address] | | MEDICAL CENT ER | | |Performed by [facility] [address], [place] [address] | | LABORATORY | | | | | CERNER | + + + + ----+ + + | Specimen | + + | Blood | + + + + + + + | Performing | Address | City/State/Zipcode | Phone Number | | Organization | | | | + + + + + | [facility] | [address] | [place] [address] | | | [facility] | [...] by | | LABORATORY | | | [facility] [address], | | CERNER | | | [place] [address] | | | + + + + + + + | Specimen | + + | Blood | + + + + + + + | Performing | Address | City/State/Zipcode | Phone Number | | Organization | | | | + + + + + | [facility] | [address] | [place] [address] | | | [facility] | | | | | LABORATORY CERNER [...] + + + + + | Specific [place] | 1.010 | 1.001 - 1.030 | [...] | [facility] | | | Performed by [facility] [address] | | [facility] | | | [address] [place] [place] | | MEDICAL CENTER | | | [address] | | LABORATORY | | | | [...] [address] | [place] [address] | | | [facility] | | | | | LABORATORY PARISH [...] +---------+ | MEDICAID [place] | MEDICA | [id number] | Medica | [phone] | | [...] | [place] | | | [phone] | [phone] | + +--------+ +--------+ + +
[2018-03-17] MEDS ORDERED: DOCUSATE CALCI240 MG PO (22:51)
[2018-03-17] MEDS ORDERED: ZOFRAN ODT4 MG PO (22:52)
== END 2018-03-18 00:24 | disposition left against medical advice (07) ==
LOC: ED 21:54
DX: Z53.21 Procedure and treatment not carried out due to patient leaving prior to being seen by health care provider (principal)

== ENCOUNTER 2018-03-22 19:13 | Observation (INO) | payer OTHER ==
[~2018-03-22] VITALS: Ht 175.3 cm; Wt 110.7 kg
[~2018-03-22 19:13] MED LIST changes: +DOCUSATE CALCI240 MG PO; +ZOFRAN ODT4 MG PO
[2018-03-22] MEDS ORDERED: MORPHABOND ER15 MG PO (19:45)
--- NOTE | 2018-03-23 02:38 | NUR ---
PT ARRIVED ON FLOOR AT AROUND 0125. V/S ARE WDL OVERALL. PT IS AAO X4, ALL LOBES ARE CLEAR, ABD SOUNDS ARE PRESENT, ABD IS TENDER TO TOUCH BUT SOFT. PAIN IS IN LLQ. LAST BM WAS 1WK AGO. PT IS TAKING STOOL SOFTNERS. PT SEEMS EMOTIONAL VERY LABILE WITH EMOTIONAL OUTBURSTS AT TIMES IN REGARDS TO HER IV. PT IS A HARD STICK AND REFUSES TO HAVE ANOTHER IV PLACED EVEN THOUGH HER TWO ABX ARE NOT COMPATIBLE. OTHERWISE I HAVE NO NEW CONCERNS AT THIS TIME.
--- NOTE | 2018-03-23 04:00 | NUR ---
PT IS SLEEPING AT THIS TIME.
--- NOTE | 2018-03-23 05:22 | NUR ---
PT ARRIVED AT 0125 ON FLOOR. PT AT FIRST WAS VERY EMOTIONAL. AT THIS TIME PT HAS SETTLED. PAIN IS WELL CONTROLLED, ALL LOBES ARE CLEAR, ABD SOUNDS ARE PRESENT, ABD IS TENDER TO TOUCH BUT SOFT. NO EDEMA NOTED. PT STATED THAT HER ABD IS DISTENDED SOME. V/S ARE WDL. PT DENIES N/V, PT ONLY HAS HAD A SCANT AMOUNT OF VAGINAL BLEEDING SINCE ARRIVAL ON FLOOR. NO NEW CONCENRS AT THIS TIME.
--- NOTE | 2018-03-23 08:40 | NUR ---
PT CALM AND COOPERATIVE BUT FLAT AFFECT AND UNINTERESTED IN EDUCATION. PT A/O X4 WITH C/O LEFT ABDOMINAL PAIN AT AN 8/10. REFUSED MEDICATION AT THIS TIME AND WANTS TO REST. LR RUNNING AT 100 ML/HR. ASSESSMENT COMPLETED. WILL HOLD SCHEDULED ABX FOR PREOP. PT AMBULATED TO BATHROOM STEADILY ON HER FEET WITH NO SIGNS OF WEAKNESS OR ISSUES. PT HAS SCANT BLEEDING; PADS GIVEN PER PT REQUEST. PRE OP BATHING TO BE COMPLETED STILL BUT PREOP CHECKLIST AND CONSENT GIVEN. NO QUESTIONS OR CONCERNS. CALL LIGHT AND BELONGINGS WITHIN REACH. WILL CONTINUE TO MONITOR.
--- NOTE | 2018-03-23 10:00 | NUR ---
PT TAKEN OFF UNIT AT 1000 WITH PRE OP NURSES. PT AGITATED AT THIS TIME WHEN THIS RN ENTERED ROOM WHILE SHE WAS DRESSING FOR SURGERY. ABX GIVEN AT THIS TIME. PT OFF UNIT FOR SURGERY.
--- NOTE | 2018-03-23 10:41 | NUR ---
pt was discharged to the ER for a psych hold at 1030, unable to do vitals.
--- NOTE | 2018-03-23 12:15 | NUR ---
PT ARRIVED ONTO UNIT BACK INTO ROOM [address] BUCKNER AN ESCORT AT THIS TIME.
[2018-03-23] MEDS ORDERED: NORCO 5-325 TA1 EACH PO (12:19)
[2018-03-23] MEDS ORDERED: IBUPROFEN800 MG PO (12:20)
--- NOTE | 2018-03-23 12:56 | NUR ---
THIS RN AND PHARMACIST SPOKE WITH AND COMPLETED EDUCATION WITH PT. ALL QUESTIONS ANSWERED AND CONCERNS ADDRESSED. PT HAD NO FURTHER QUESTIONS. PT SITTING UP IN CHAIR, FLAT BUT COOPERATIVE. SHE STATES THAT HER PAIN "IS THERE" BUT IS ADEQUATE AND TOLERABLE. SHE STATED THAT SHE IS UNSURE WHERE HER MOTHER IS, WHO IS PICKING HER UP. I CALLED AT 1250 AND SPOKE TO HER MOTHER EYAL AT THE HOME PHONE NUMBER PROVIDED IN PT'S CHART TO ENSURE SHE WAS AWARE THAT HER DAUGHTER IS AWAITING HER ARRIVAL TO TAKE HER HOME. HER MOTHER SAID SHE WILL "LEAVE MISSION IN A FEW MINUTES." I RELAYED THIS TO THE PT WHO APPEARS TO BE FRUSTRATED THAT HER MOTHER STILL IS NOT HERE. PT HAS NO FURTHER QUESTIONS AT THIS TIME. CALL LIGHT WITHIN REACH AND I WILL CONTINUE TO MONITOR.
== END 2018-03-23 12:56 | disposition home or self-care (01) ==
LOC: ED 19:13 → MS 19:16
PROVIDERS: ADMIT Obstetrics & Gynecology
DX: N83.202 Unspecified ovarian cyst, left side (principal); R50.9 Fever, unspecified; R45.1 Restlessness and agitation; Z86.19 Personal history of other infectious and parasitic diseases; Z97.5 Presence of (intrauterine) contraceptive device; Z53.8 Procedure and treatment not carried out for other reasons
CPT/HCPCS: 76830; 76856; 80053; 81001; 84703; 85025; 87491; 87591; 96361; 96365; 96374; 96375; 96376; 99284; G0378; J0694; J0696; J1170; J1885; J2250; J2704; J3010; J7030; J7120

== ENCOUNTER 2018-09-24 13:36 | Emergency (ER) | payer OTHER ==
[~2018-09-24] VITALS: Ht 175.3 cm; Wt 110.7 kg
[~2018-09-24 13:36] MED LIST changes: +IBUPROFEN800 MG PO; +MORPHABOND ER15 MG PO
--- OUTSIDE RECORDS SUMMARY | 2018-09-24 13:38 | XMS ---
PreManage Notification: EPREZ JAIMES Security Cadd Drafter Events 1 event(s) in the past 18 months Most recent security events: Elopement at [facility] 03/17/2018 21:54 - Patient eloped before treatment completed. Details: LWBS CRITERIA MET - Group Notification - [facility] [place] - Has Care Guidelines - PDMP CARE PROVIDERS ROXANA SAENZ Physician Cable Engineer Outside Plant: Surgical 04/01/2018-Current PHONE: Unknown LUIS EID [facility] 03/18/2018-Current PHONE: Unknown Sohail has no Care Guidelines for this patient. Care History Medical/Surgical 03/19/2018 [facility] - PLEASE REFER PATIENT TO PCP - ROXANA MUNIZ AT [facility] - PATIENT CAN BE SEEN SAME DAY FOR NON EMERGENT MEDICAL NEEDS IF PATIENT CALLS FIRST THING IN THE MORNING TO [facility]. [facility]12 MO.) [facility] TOTAL 7 NOTE: Visits indicate total known visits. ED/UCC VISIT TRACKING (12 MO.) 09/24/2018 13:36 [facility] TYPE: Emergency COMPLAINT: - R SHOULDER PAIN 03/29/2018 18:19 [facility] TYPE: Emergency COMPLAINT: - ABD PAIN DIAGNOSES: - Unspecified abdominal pain - Unspecified ovarian cyst, left side 03/22/2018 19:15 [facility] TYPE: Emergency COMPLAINT: - HEMORRHAGIC OVARIAN CYST 03/17/2018 21:54 [facility] TYPE: Emergency COMPLAINT: - ABD PAIN DIAGNOSES: - Unspecified abdominal pain - Procedure and treatment not carried out due to patient leaving prior to being seen by health care provider [facility]16/2018 [facility] DIAGNOSES: - Unspecified ovarian cyst, left side - Abdominal Pain 11/24/2017 04:17 [facility] TYPE: Emergency COMPLAINT: - INTOXICATED DIAGNOSES: - Nicotine dependence, unspecified, uncomplicated - Blood alcohol level of 240 mg/100 ml or more - Alcohol abuse with intoxication, unspecified 10/13/2017 17:57 [facility] TYPE: Emergency COMPLAINT: - PROBLEM W/ CHEEKBONE PIERCING DIAGNOSES: - Superficial foreign body of other part of head, initial encounter - Nicotine dependence, unspecified, uncomplicated - Contact with unspecified sharp object(s), initial encounter - CONTACT WITH UNSPECIFIED SHARP OBJECT(S), INITIAL INPATIENT VISIT TRACKING (12 MO.) 03/22/2018 19:16 [facility] TYPE: Medical Surgical COMPLAINT: - HEMORRHAGIC OVARIAN CYST DIAGNOSES: - Personal history of other infectious and parasitic diseases - Unspecified ovarian cyst, left side - Fever, unspecified - Procedure and treatment not carried out for other reasons - Lower abdominal pain, unspecified - Presence of (intrauterine) contraceptive device - Restlessness and agitation [email or web address]
[2018-09-24] MEDS ORDERED: IBUPROFEN600 MG PO (15:00)
== END 2018-09-24 15:10 | disposition home or self-care (01) ==
LOC: ED 13:36
DX: S40.011A Contusion of right shoulder, initial encounter (principal); W19.XXXA Unspecified fall, initial encounter
CPT/HCPCS: 73060; 99283; 99406

== ENCOUNTER 2021-11-13 06:12 | Emergency (ER) | payer OTHER ==
[~2021-11-13] VITALS: Ht 172.7 cm; Wt 102.0 kg
[~2021-11-13 06:12] MED LIST changes: +IBUPROFEN600 MG PO
--- OUTSIDE RECORDS SUMMARY | 2021-11-13 06:20 | XMS ---
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 Care History Medical/Surgical 03/19/2018 [facility] - PLEASE REFER PATIENT TO PCP - ROXANA MUNIZ AT [facility]. - PATIENT CAN BE SEEN SAME DAY FOR NON EMERGENT MEDICAL NEEDS IF PATIENT CALLS FIRST THING IN THE MORNING TO [facility]. E.D. VISIT COUNT (12 MO.) 1 JAMES Robles TOTAL 1 NOTE: Visits indicate total known visits. ED/UCC VISIT TRACKING (12 MO.) 11/13/2021 06:13 [facility] TYPE: Emergency COMPLAINT: - GENITAL ISSUES INPATIENT VISIT TRACKING (12 MO.) No inpatient visits to display in this time frame [email or web address]
[2021-11-13] MEDS ORDERED: BACTRIM DS TAB1 EACH PO (07:50)
[2021-11-13] MEDS ORDERED: HYDROCODON-ACE1 EA10 PO (07:50)
== END 2021-11-13 08:11 | disposition home or self-care (01) ==
LOC: ED 06:12
DX: L02.234 Carbuncle of groin (principal); F17.200 Nicotine dependence, unspecified, uncomplicated
CPT/HCPCS: 56405; 99283-25; A9270; J2270